=== PATIENT | male | born 1935 | race Caucasian/White ===

== ENCOUNTER 2019-12-31 08:54 | Outpatient (CLI) | payer MEDICARE, SELFPAY ==
[2020-01-02 10:52] LABS: Vitamin D 25 Hydroxy 45 ng/mL (30-100)
== END 2019-12-31 08:55 | disposition home or self-care (01) ==
LOC: CHSLAB 08:56
PROVIDERS: PCP Nurse Practitioner Family; Visit Provider Nurse Practitioner Family
DX: E55.9 Vitamin D deficiency, unspecified (principal)
CPT/HCPCS: 36415; 82306

== ENCOUNTER 2020-12-25 08:06 | Outpatient (CLI) | payer MEDICARE, SELFPAY ==
[2020-12-25 08:44] LABS: Hematocrit 42.4 % (37.0-46.0); Hemoglobin 13.9 g/dL (12.4-15.3); Immature Platelet Fraction Pct 3.5 % (1.0-7.0); Mean Corpuscular HGB Conc 32.8 g/dL (32.0-36.0); Mean Corpuscular Hemoglobin 29.1 pg (27.0-31.0); Mean Corpuscular Volume 88.7 fL (78.0-102.0); Mean Platelet Volume 10.4 fl (8.7-11.0); Platelet Count Result 153 K/mm3 (150-420); Red Blood Count 4.78 M/mm3 (4.70-6.10); Red Cell Distribution Width 13.4 % (11.6-14.4); White Blood Count 3.3 K/mm3 (4.8-10.8)
[2020-12-25 09:06] LABS: Total Cells Counted 100
[2020-12-25 09:08] LABS: Band Neutrophils Percent 0 % (0-6); Basophils Absolute Manual 0.03 K/mm3 (0-0.1); Basophils Percent Manual 1 % (0-1); Eosinophils Percent Manual 0 % (1-6); Lymphocytes Absolute Manual 1.02 K/mm3 (1.1-4.5); Lymphocytes Percent Manual 31 % (18-44); Monocytes Absolute Manual 0.23 K/mm3 (0.1-0.90); Monocytes Percent Manual 7 % (3-9); Neutrophils Absolute Manual 2.01 K/mm3 (1.3-6.7); Neutrophils Percent Manual 61 % (46-73); Platelet Estimate Adequate (Adequate)
[2020-12-25 09:40] LABS: Alanine Aminotransferase 14 U/L (16-63); Albumin Level 3.5 g/dL (3.4-5.0); Alkaline Phosphatase 95 U/L (46-116); Anion Gap 8 mmol/L (8-16); Aspartate Amino Transferase 15 U/L (15-37); Bilirubin,Total 0.5 mg/dL (0.00-1.00); Blood Urea Nitrogen 15 mg/dL (7-18); Carbon Dioxide 27 mmol/L (21-32); Chloride 104 mmol/L (98-108); Estimated Glomerular Filt Rate > 60; Glucose 162 mg/dL (70-99); Osmolality Calculated 292 mOsm/kg (285-295); Potassium 4.2 mmol/L (3.5-5.1); Sodium 139 mmol/L (136-145); Total Protein 7.1 g/dL (6.4-8.2)
[2020-12-25 09:43] LABS: Cholesterol 146 mg/dL (0-200); HDL Direct 46 mg/dL (40-60); LDL Cholesterol Calculated 83 mg/dL (<130); Triglycerides 85 mg/dL (0-150)
[2020-12-25 15:17] LABS: Hemoglobin A1C 5.9 % (<5.7)
[2020-12-28 12:06] LABS: Vitamin D 25 Hydroxy 15 ng/mL (30-100)
== END 2020-12-25 08:07 | disposition home or self-care (01) ==
PROVIDERS: PCP Nurse Practitioner Family; Visit Provider Nurse Practitioner Family
DX: E78.5 Hyperlipidemia, unspecified (principal); I10 Essential (primary) hypertension; Z79.899 Other long term (current) drug therapy; E55.9 Vitamin D deficiency, unspecified; R73.9 Hyperglycemia, unspecified
CPT/HCPCS: 36415; 80053; 80061; 82306; 83036; 85025; 85055

== ENCOUNTER 2021-01-24 09:43 | Outpatient (CLI) | payer MEDICARE, SELFPAY ==
[2021-01-24 10:04] LABS: Hematocrit 42.7 % (37.0-46.0); Hemoglobin 13.8 g/dL (12.4-15.3); Immature Platelet Fraction Pct 5.2 % (1.0-7.0); Mean Corpuscular HGB Conc 32.3 g/dL (32.0-36.0); Mean Corpuscular Hemoglobin 28.8 pg (27.0-31.0); Mean Platelet Volume 10.9 fl (8.7-11.0); Platelet Count Result 140 K/mm3 (150-420); Red Cell Distribution Width 13.9 % (11.6-14.4)
== END 2021-01-24 09:44 | disposition home or self-care (01) ==
LOC: CHSLAB 09:45
PROVIDERS: PCP Nurse Practitioner Family; Visit Provider Nurse Practitioner Family
DX: I10 Essential (primary) hypertension (principal)
CPT/HCPCS: 36415; 85027; 85055

== ENCOUNTER 2022-04-16 15:04 | Outpatient (CLI) | payer MEDICARE, SELFPAY ==
--- NOTE | ~2022-04-16 | CT_ITS ---
EXAMINATION: CT abdomen pelvis wo con DATE: 04/16/2022 15:31 INDICATION: Left flank pain. Hematuria. TECHNIQUE: Computed tomography (CT) of the abdomen and pelvis was performed without intravenous contr ast. Automated exposure control and iterative reconstruction technique were employed. The dose-length product was 532.95 mGy-cm. COMPARISON: None. FINDINGS: The visualized portions of the lung bases demonstrate mild chronic interstitial lung diseas e. No pleural effusion. The heart size is normal. There are coronary artery calcifications. There are calcifications of aortic valve. There is a small sliding hiatal hernia. The liver, spleen, gallbladd er, pancreas, and adrenal glands are normal. There is a 2 mm stone in right kidney. There are peripel italo cysts in right kidney measuring up to 2.0 cm. There is a 2.6 cm cyst in left kidney. There are 7 mm and 2 mm stones in left kidney. There is mild left hydronephrosis and hydroureter. There is a 4 mm stone in distal left ureter. The prostate is moderately enlarged. There are no dilated loops of sree l. The appendix is normal. There is a supraumbilical ventral hernia containing fat. There is a right inguinal hernia containing fat. There are no pathologically enlarged lymph nodes. There is no free in traperitoneal fluid. There is thoracolumbar dextroscoliosis and severe spondylosis. IMPRESSION: 1. 4 mm stone in distal left ureter with mild left hydronephrosis and hydroureter. 2. Bilateral nonobstructing kidney stones. Reviewed, dictated and finalized at location B. IMPRESSION: 1. 4 mm stone in distal left ureter with mild left hydronephrosis and hydrouret er. 2. Bilateral nonobstructing kidney stones.
== END 2022-04-16 15:05 | disposition home or self-care (01) ==
LOC: CHSIMG 15:07
PROVIDERS: PCP Nurse Practitioner Family; Visit Provider Nurse Practitioner Family
DX: R10.9 Unspecified abdominal pain (principal); R31.29 Other microscopic hematuria
CPT/HCPCS: 74176

== ENCOUNTER 2022-04-19 07:17 | Outpatient (CLI) | payer MEDICARE, SELFPAY ==
[2022-04-19 07:51] LABS: Eosinophils Absolute Auto 0.02 K/mm3 (0.02-0.50); Eosinophils Percent Auto 0.2 % (1.0-6.0); Hemoglobin 14.6 g/dL (12.4-15.3); Immature Granulocyte Absolute 0.16 K/mm3 (0.00-0.00); Immature Granulocyte Percent A 1.6 % (0.0-0.0); Immature Platelet Fraction Pct 5.7 % (1.0-7.0); Lymphocytes Absolute Auto 0.54 K/mm3 (1.10-4.50); Lymphocytes Percent Auto 5.3 % (18.0-42.0); Mean Corpuscular Hemoglobin 29.9 pg (27.0-31.0); Mean Corpuscular Volume 87.9 fL (78.0-102.0); Mean Platelet Volume 11.1 fl (8.7-11.0); Monocytes Absolute Auto 1.24 K/mm3 (0.10-0.90); Monocytes Percent Auto 12.1 % (2.0-11.0); Neutrophils Absolute Auto 8.3 K/mm3 (1.7-7.2); Neutrophils Percent Auto 80.8 % (50.0-70.0); Red Blood Count 4.89 M/mm3 (4.70-6.10); Red Cell Distribution Width 12.5 % (11.6-14.4); White Blood Count 10.2 K/mm3 (4.8-10.8)
[2022-04-19 08:13] LABS: Alanine Aminotransferase 14 U/L (16-63); Albumin Level 3.4 g/dL (3.4-5.0); Alkaline Phosphatase 86 U/L (46-116); Anion Gap 11 mmol/L (8-16); Aspartate Amino Transferase 18 U/L (15-37); Bilirubin,Total 0.7 mg/dL (0.00-1.00); Blood Urea Nitrogen 28 mg/dL (7-18); Calcium 9.2 mg/dL (8.5-10.1); Carbon Dioxide 24 mmol/L (21-32); Chloride 101 mmol/L (98-108); Estimated Glomerular Filt Rate 47; Glucose 136 mg/dL (70-99); Osmolality Calculated 289 mOsm/kg (285-295); Potassium 3.9 mmol/L (3.5-5.1); Sodium 136 mmol/L (136-145); Total Protein 8.1 g/dL (6.4-8.2)
[2022-04-19 08:42] LABS: Platelet Count Result 128 K/mm3 (150-420)
[2022-04-21 14:04] LABS: Vitamin D 25 Hydroxy 31 ng/mL (30-100)
== END 2022-04-19 07:18 | disposition home or self-care (01) ==
LOC: CHSLAB 07:18
PROVIDERS: PCP Nurse Practitioner Family; Visit Provider Nurse Practitioner Family
DX: N20.0 Calculus of kidney (principal); E55.9 Vitamin D deficiency, unspecified
CPT/HCPCS: 36415; 80053; 82306; 85025; 85055

== ENCOUNTER 2022-04-19 11:31 | Emergency (ER) | payer MEDICARE, SELFPAY ==
[2022-04-19] VITALS (21 sets, daily range): BP systolic 142–179; BP diastolic 92–95; PULSE 62–66; RESP 18; TEMP 36.6–36.8; O2SAT 91–96
--- NOTE | ~2022-04-19 | CT_ITS ---
EXAMINATION: CT abdomen pelvis wo con DATE: 04/19/2022 13:08 INDICATION: Left-sided abdominal/flank pain with nausea and vomiting. Nephrolithiasis. TECHNIQUE: Computed tomography (CT) of the abdomen and pelvis was performed without intravenous contr ast. Automated exposure control and iterative reconstruction technique were employed. The dose-length product was 223.50 mGy-cm. COMPARISON: 04/16/2022 FINDINGS: Mild elevation of the left hemidiaphragm with atelectasis and very small left pleural effusion at the posterior sulcus. Mild chronic interstitial lung disease with unchanged mild reticular nodular opaci ties at the periphery of the right lower lung. Heart size is normal. Atherosclerotic coronary artery calcific location. Aortic valve calcification. No pericardial effusion. Small sliding-type hiatal her carlos. Liver, gallbladder, spleen, pancreas and bilateral adrenal glands are normal. 2 mm nonobstructing stone at the upper pole of the right kidney. Parapelvic cysts but no hydronephros is at the right kidney. Unchanged 3-4 mm obstructing stone at the distalmost left ureter with moderat e left hydroureteronephrosis. Additional 6 mm on the lower pole of the left kidney and 1-2 mm stone a t the upper pole of the left kidney. 2.5 cm cyst at the lower pole of the left kidney. Prostatomegaly measuring 5.0 x 3.7 cm. Partially decompressed bladder is unremarkable. Bowels including the appendix are normal. Small fat-containing supraumbilical ventral hernia. Small f at-containing right inguinal hernia. No free intraperitoneal gas or fluid. No pathologically enlarged abdominal or pelvic lymphadenopathy. Thoracolumbar dextroscoliosis with severe spondylosis. Moderate bilateral hip osteoarthritis. Enthesopathic ossification at the left greater trochanteric insertion of the left gluteus minimus tendon. IMPRESSION: 1. Bilateral nephrolithiasis with unchanged obstructing 3-4 mm stone in the distalmost left ureter wi th mild to moderate left hydroureteronephrosis. Reviewed, dictated and finalized at location B. IMPRESSION: 1. Bilateral nephrolithiasis with unchanged obstructing 3-4 mm stone in the dis talmost left ureter with mild to moderate left hydroureteronephrosis.
--- NOTE | 2022-04-19 11:53 | ED.ABDPAIN ---
HPI - Abdominal Pain General Chief Complaint: Urogenital-Male Stated Complaint: kidney stones Time Seen by Provider: 04/19/22 11:53 Source: patient, family and RN notes reviewed Mode of arrival: ambulatory Limitations: no limitations History of Present Illness HPI narrative: Patient was diagnosed with kidney stone on the left side 3 days ago on Tuesday. Said the pain has become much worse. He is having difficulty eating and drinking. Been having some nausea vomiting. He finally did take 1 of his 's hydrocodones which seems to have helped. He is on Flomax currently. MD elicited complaint: flank pain Pertinent past history: kidney stones Onset (ago): day(s) (4) Pain Consistency: intermittent Location: LLQ and L flank Severity: severe Quality: stabbing and sharp Radiation: none Migration to: no migration Exacerbating factors: nothing Relieving factors: nothing Associated symptoms: nausea, vomiting and anorexia Treatments prior to arrival: NSAIDs Related Data Home Medications Medication Instructions Recorded Confirmed aspirin 81 mg tablet,delayed 81 mg PO DAILY 11/08/19 04/19/22 release (Adult Aspirin Regimen) multivitamin-ferrous 1 tablet PO DAILY 04/19/22 04/19/22 fumarate-folic acid 18 mg-400 mcg tablet (Centrum) Allergies Allergy/AdvReac Type Severity Reaction Status Date / Time codeine Allergy Mild Unknown Verified 04/19/22 11:49 Review of Systems Review of Systems: All systems reviewed & are unremarkable except as noted in HPI and below Constitutional: Constitutional: Denies chills and Denies fever(s) PMFSH Past Medical History Medical History CAD (coronary artery disease) HTN (hypertension) Hyperglycemia Male erectile disorder Osteoarthritis Family History Family History Father Emphysema of lung Social History Social History Smoking packs per day: 1 Smoking cigarettes per day: 20.0 Years smoked: 42 Smoking pack-years: 42.00 Smoking status: Former smoker Additional smoking assessment comments: Patient is unsure what year he quit Exam Const: General: healthy appearing, no acute distress and alert Nutritional Appearance: well nourished Orientation/consciousness: patient oriented x3 HENMT: Head: normal to inspection Ears: external ears normal Face and sinus: normal facial exam Eyes: Conjunctivae: conjunctivae normal Pupils: Equal, round and reactive pupils present EOM: EOMs intact bilaterally Neck: Neck: normal visual inspection Resp: Effort & Inspection: normal respiratory effort Auscultation: clear to auscultation bilaterally Cardio: Rate: regular rate Rhythm: regular rhythm GI: GI Palp: Yes Soft to palpation and Yes Tenderness to palpation present (GI) (LUQ mild) Auscultation: normal bowel sounds Back/Spine/Pelvis: Back: no CVA tenderness Cervical Spine: cervical ROM normal Thoracic/Lumbar Spine: thoraco-lumbar ROM normal Skin: General skin exam: normal color Rashes: no rashes Neuro: General: patient oriented x3, moves all extremities, no focal motor deficits and CN's II-XI intact bilaterally Speech: normal speech Gait exam (Neuro): Normal gait present Extrem: General: normal to inspection and no clubbing, cyanosis or edema Psych: Mental Status: mental status grossly normal Affect: normal affect Attitude: cooperative Course Vital Signs Vital signs: Vital Signs Temperature 36.8 C 04/19/22 11:41 Pulse Rate 66 04/19/22 11:41 Respiratory Rate 18 04/19/22 11:41 Blood Pressure 164/95 H 04/19/22 11:41 Pulse Oximetry 94 04/19/22 11:41 Oxygen Delivery Room Air 04/19/22 11:41 Temperature 36.6 C 04/19/22 14:20 Pulse Rate 63 04/19/22 14:20 Respiratory Rate 18 04/19/22 14:20 Blood Pressure 172/92 H 04/19/22 14:20 Pulse Oximetry 95 04/19/22 14:20 Oxyge
[2022-04-19 12:26] LABS: CRP 17.3 mg/dL (0.0-0.9)
[2022-04-19 12:39] LABS: Add Urine Microscopic? YES; Bilirubin Urine Negative (Negative); Blood Urine 3+ (Negative); Color Urine Yellow (Yellow); Glucose Urine UA Negative (Negative); Ketones Urine 1+ (Negative); Leukocyte Esterase Ur Negative LEU/UL (Negative); Nitrate Urine Negative (Negative); Protein Urine 2+ (Negative); Specific Grav Ur >= 1.030 (1.010-1.020)
[2022-04-19 12:44] LABS: Bacteria Urine 1+ /hpf; Squamous Epithelial Cell Urine Rare /hpf (Few); WBC Urine None seen /hpf (0-3)
[2022-04-19 12:45] LABS: Appearance Urine Slightly Cloudy (Clear)
--- NOTE | 2022-04-19 12:52 | PC.NURSE ---
Pt off floor to CT scan
[2022-04-19] MEDS: ONDANSETRON HCL ODT 4 MG TABLET PO (14:19)
== END 2022-04-19 14:20 | disposition home or self-care (01) ==
PROVIDERS: Emergency Provider Emergency Medicine; PCP Nurse Practitioner Family
DX: N20.1 Calculus of ureter (principal); I25.10 Atherosclerotic heart disease of native coronary artery without angina pectoris; I10 Essential (primary) hypertension; M19.90 Unspecified osteoarthritis, unspecified site; Z87.891 Personal history of nicotine dependence
CPT/HCPCS: 36415; 74176; 81001; 86140; 99284; A9270

== ENCOUNTER 2022-05-24 09:21 | Outpatient (CLI) | payer MEDICARE, SELFPAY ==
[2022-05-24 09:45] LABS: Appearance Urine Clear (Clear); Bilirubin Urine Negative (Negative); Glucose Urine UA Negative (Negative); Ketones Urine Negative (Negative); Leukocyte Esterase Ur Negative (Negative); Nitrate Urine Negative (Negative); Protein Urine Negative (Negative); Urobilinogen Urine 0.2 mg/dL (0.2-1.0)
[2022-05-24 09:51] LABS: Add Urine Microscopic? YES; Blood Urine Trace-lysed (Negative)
[2022-05-24 09:52] LABS: Color Urine Yellow (Yellow); WBC Urine None seen /hpf (0-3)
[2022-05-24 09:53] LABS: Bacteria Urine Trace /hpf; Mucus Urine Moderate /lpf; Squamous Epithelial Cell Urine Rare /hpf (Few)
[2022-05-24 09:59] LABS: Creatinine Urine 177.68 mg/dL (40-278); Total Protein Urine Random 28.4 mg/dL (0.0-11.9); Ur Ttl Prot Creatinine Ratio 0.16 mg/mg (0-0.20)
[2022-05-24 10:15] LABS: Albumin Level 3.7 g/dL (3.4-5.0); Anion Gap 10 mmol/L (8-16); Blood Urea Nitrogen 18 mg/dL (7-18); Calcium 8.9 mg/dL (8.5-10.1); Carbon Dioxide 24 mmol/L (21-32); Chloride 107 mmol/L (98-108); Estimated Glomerular Filt Rate > 60; Glucose 84 mg/dL (70-99); Osmolality Calculated 292 mOsm/kg (285-295); Phosphorus 3.1 mg/dL (2.6-4.7); Potassium 4.3 mmol/L (3.5-5.1); Sodium 141 mmol/L (136-145)
== END 2022-05-24 09:22 | disposition home or self-care (01) ==
LOC: CHSLAB 09:25
PROVIDERS: PCP Nurse Practitioner Family; Visit Provider Internal Medicine Nephrology
DX: R94.4 Abnormal results of kidney function studies (principal); N17.8 Other acute kidney failure; N20.0 Calculus of kidney
CPT/HCPCS: 36415; 80069; 81001; 82570; 84156; 87086; 87088

== ENCOUNTER 2022-08-24 10:19 | Outpatient (CLI) | payer MEDICARE, SELFPAY ==
[2022-08-24 10:47] LABS: Add Urine Microscopic? NO; Appearance Urine Clear (Clear); Bilirubin Urine Negative (Negative); Blood Urine Negative (Negative); Color Urine Yellow (Yellow); Glucose Urine UA Negative (Negative); Ketones Urine Negative (Negative); Leukocyte Esterase Ur Negative (Negative); Nitrate Urine Negative (Negative); Protein Urine Negative (Negative); Specific Grav Ur 1.025 (1.010-1.020); Urobilinogen Urine 0.2 mg/dL (0.2-1.0)
[2022-08-24 10:53] LABS: Creatinine Urine 142.68 mg/dL (40-278); Total Protein Urine Random 19.6 mg/dL (0.0-11.9); Ur Ttl Prot Creatinine Ratio 0.14 mg/mg (0-0.20)
[2022-08-24 11:15] LABS: Albumin Level 3.9 g/dL (3.4-5.0); Anion Gap 7 mmol/L (8-16); Blood Urea Nitrogen 24 mg/dL (7-18); Calcium 8.8 mg/dL (8.5-10.1); Carbon Dioxide 27 mmol/L (21-32); Chloride 106 mmol/L (98-108); Estimated Glomerular Filt Rate > 60; Glucose 86 mg/dL (70-99); Osmolality Calculated 293 mOsm/kg (285-295); Phosphorus 3.4 mg/dL (2.6-4.7); Potassium 4.4 mmol/L (3.5-5.1); Sodium 140 mmol/L (136-145)
== END 2022-08-24 10:20 | disposition home or self-care (01) ==
PROVIDERS: PCP Nurse Practitioner Family; Visit Provider Internal Medicine Nephrology
DX: N17.8 Other acute kidney failure (principal); N20.0 Calculus of kidney
CPT/HCPCS: 36415; 80069; 81003; 82570; 84156; 87086

== ENCOUNTER 2023-12-13 10:12 | Outpatient (CLI) | payer MEDICARE, SELFPAY ==
[2023-12-13 10:49] LABS: Appearance Urine Clear (Clear); Bilirubin Urine Negative (Negative); Blood Urine Negative (Negative); Color Urine Yellow (Yellow); Glucose Urine UA Negative (Negative); Ketones Urine Negative (Negative); Leukocyte Esterase Ur Negative LEU/UL (Negative); Nitrate Urine Negative (Negative); Protein Urine Negative (Negative); Specific Grav Ur >= 1.030 (1.010-1.020); Urobilinogen Urine 0.2 mg/dL (0.2-1.0)
[2023-12-13 10:51] LABS: Basophils Absolute Auto 0.01 K/mm3 (0.00-0.10); Basophils Percent Auto 0.3 % (0.0-1.0); Hematocrit 43.3 % (37.0-46.0); Hemoglobin 13.9 g/dL (12.4-15.3); Immature Granulocyte Absolute 0.03 K/mm3 (0.00-0.00); Immature Granulocyte Percent A 0.8 % (0.0-0.0); Immature Platelet Fraction Pct 6.1 % (1.0-7.0); Lymphocytes Absolute Auto 1.09 K/mm3 (1.10-4.50); Lymphocytes Percent Auto 27.6 % (18.0-42.0); Mean Corpuscular HGB Conc 32.1 g/dL (32.0-36.0); Mean Corpuscular Hemoglobin 28.7 pg (27.0-31.0); Mean Corpuscular Volume 89.5 fL (78.0-102.0); Mean Platelet Volume 10.8 fl (8.7-11.0); Monocytes Percent Auto 12.7 % (2.0-11.0); Neutrophils Absolute Auto 2.3 K/mm3 (1.7-7.2); Neutrophils Percent Auto 58.6 % (50.0-70.0); Platelet Count Result 136 K/mm3 (150-420); Red Blood Count 4.84 M/mm3 (4.70-6.10); Red Cell Distribution Width 13.2 % (11.6-14.4)
[2023-12-13 11:07] LABS: Add Urine Microscopic? NO; Hemoglobin A1C 5.8 % (<5.7)
[2023-12-13 12:17] LABS: Alanine Aminotransferase 16 U/L (16-63); Albumin Level 3.7 g/dL (3.4-5.0); Alkaline Phosphatase 87 U/L (46-116); Anion Gap 11 mmol/L (8-16); Aspartate Amino Transferase 17 U/L (15-37); Bilirubin,Total 0.3 mg/dL (0.00-1.00); Blood Urea Nitrogen 27 mg/dL (7-18); Calcium 8.7 mg/dL (8.5-10.1); Carbon Dioxide 24 mmol/L (21-32); Chloride 105 mmol/L (98-108); Cholesterol 163 mg/dL (0-200); Estimated Glomerular Filt Rate 55; Glucose 90 mg/dL (70-99); HDL Direct 55 mg/dL (40-60); LDL Cholesterol Calculated 90 mg/dL (<130); Osmolality Calculated 295 mOsm/kg (285-295); Potassium 4.8 mmol/L (3.5-5.1); Sodium 140 mmol/L (136-145); Total Protein 7.4 g/dL (6.4-8.2); Triglycerides 90 mg/dL (0-150)
[2023-12-16 02:39] LABS: Vitamin D 25 Hydroxy 25 ng/mL (30-100)
== END 2023-12-13 10:13 | disposition home or self-care (01) ==
LOC: CHSLAB 10:16
PROVIDERS: PCP Nurse Practitioner Family; Visit Provider Nurse Practitioner Family
DX: N20.0 Calculus of kidney (principal); R73.9 Hyperglycemia, unspecified; Z79.899 Other long term (current) drug therapy; E55.9 Vitamin D deficiency, unspecified; Z13.6 Encounter for screening for cardiovascular disorders; I10 Essential (primary) hypertension
CPT/HCPCS: 36415; 80053; 80061; 81003; 82306; 83036; 85025; 85055